=== PATIENT | female | born 1995 | race Caucasian/White ===

== ENCOUNTER 2017-03-06 16:47 | Emergency (ER) | payer MEDICAID ==
[~2017-03-06] VITALS: Ht 149.9 cm; Wt 65.0 kg
[~2017-03-06 16:47] MED LIST: ACET325T14 PO; ACYC-114 PO; IBUP-1222 PO; ONDA4TAB7 PO; OXYC-302 PO; PNV1TABL11 PO
[2017-03-06] MEDS ORDERED: SODIUM CHLORIDE 0.9% 1,000ML IVBOLUS ONE (17:30)
[2017-03-06] MEDS ORDERED: ONDANSETRON 2MG/ML, 2ML IVPush ONE (17:30)
[2017-03-06] MEDS ORDERED: SODIUM CHLORIDE FLUSH 10ML SYR IVF ONE (17:30)
[2017-03-06] MEDS ORDERED: ONDANSETRON 2MG/ML, 2ML ONE (17:39)
[2017-03-06 17:47] LABS: BLOOD UREA NITROGEN 14 mg/dL (7-18)
[2017-03-06 18:39] VITALS: BP 126/84
== END 2017-03-06 18:42 | disposition home or self-care (01) ==
LOC: ED 18:30
DX: O26.891 Other specified pregnancy related conditions, first trimester (principal); R11.2 Nausea with vomiting, unspecified; E86.0 Dehydration; R53.83 Other fatigue
CPT/HCPCS: 36415; 80048; 81001; 82040; 85025; 87086; 96374; 99284; J2405; J7030

== ENCOUNTER 2017-04-25 11:17 | Emergency (ER) | payer MEDICAID ==
[~2017-04-25] VITALS: Ht 149.9 cm; Wt 70.0 kg
[2017-04-25 11:50] LABS: WHITE BLOOD COUNT 11.6 x10^3/uL (3.4-10)
[2017-04-25] MEDS ORDERED: SODIUM CHLORIDE 0.9% 1,000ML IVBOLUS ONE (12:00)
[2017-04-25] MEDS ORDERED: ONDANSETRON 2MG/ML, 2ML IVPush ONE (12:00)
[2017-04-25 12:04] LABS: BLOOD UREA NITROGEN 9 mg/dL (7-18)
[2017-04-25] MEDS ORDERED: ONDANSETRON 2MG/ML, 2ML ONE (12:05)
[2017-04-25 12:08] LABS: ASPARTATE AMINO TRANSFERASE 7 U/L (15-37)
[2017-04-25 16:18] VITALS: BP 104/55
== END 2017-04-25 16:42 | disposition home or self-care (01) ==
LOC: ED 12:41
DX: O26.892 Other specified pregnancy related conditions, second trimester (principal); Z3A.17 17 weeks gestation of pregnancy; R10.31 Right lower quadrant pain
CPT/HCPCS: 36415; 74181; 76805; 80053; 81001; 85025; 87086; 87147; 99285

== ENCOUNTER 2017-05-26 12:50 | Outpatient (CLI) | payer MEDICAID ==
[~2017-05-26] VITALS: Ht 149.9 cm; Wt 70.9 kg
[2017-05-26 13:27] VITALS: BP 110/60
[2017-05-26 14:45] LABS: DAU SCREEN DISCLAIMER
[2017-05-26 15:08] LABS: HEMOGLOBIN 12.7 g/dL (11.7-16.4); WHITE BLOOD COUNT 12.1 x10^3/uL (3.4-10)
[2017-05-26 15:17] LABS: ASPARTATE AMINO TRANSFERASE 7 U/L (15-37); BLOOD UREA NITROGEN 5 mg/dL (7-18)
== END 2017-05-26 16:44 | disposition home or self-care (01) ==
LOC: LDOP 12:50
PROVIDERS: ATTEND Obstetrics & Gynecology
DX: O26.892 Other specified pregnancy related conditions, second trimester (principal); R10.9 Unspecified abdominal pain; Z3A.21 21 weeks gestation of pregnancy
CPT/HCPCS: 36415; 59025; 80053; 80307; 81003; 85025; 87086; 99211; G0463; G0479

== ENCOUNTER 2017-09-26 10:03 | Inpatient (IN) | payer MEDICAID ==
[~2017-09-26] VITALS: Ht 149.9 cm; Wt 84.5 kg
[2017-09-26] MEDS ORDERED: LACTATED RINGERS 1,000 ML IVBOLUS ONE (10:30)
[2017-09-26] MEDS ORDERED: SODIUM CITRATE/CITRIC ACID 30 ML UDC PO ONE (10:30)
[2017-09-26] MEDS ORDERED: METOCLOPRAMIDE 5 MG/ML, 2ML IV ONE (10:30)
[2017-09-26 10:35] VITALS: BP 120/83
[2017-09-26] MEDS ORDERED: NEWBORN KIT ONE (10:45)
[2017-09-26] MEDS ORDERED: OXYTOCIN 30U/ 0.9% NaCL 500ML 500 ML ONE (10:45)
[2017-09-26] MEDS ORDERED: METOCLOPRAMIDE 5 MG/ML, 2ML ONE (10:45)
[2017-09-26] MEDS ORDERED: SODIUM CITRATE/CITRIC ACID 30 ML UDC ONE (10:45)
[2017-09-26] MEDS ORDERED: PLEASE ENTER HEIGHT AND WEIGHT MC SCH (11:00)
[2017-09-26 11:05] LABS: BASOPHILS # (AUTO) 0.04 x10^3/uL (0-0.1); BASOPHILS % (AUTO) 0 % (0-1); EOSINOPHILS # (AUTO) 0.01 x10^3/uL (0-0.4); EOSINOPHILS % (AUTO) 0 % (1-7); LYMPHOCYTES # (AUTO) 1.79 x10^3/uL (1-3.4); LYMPHOCYTES % (AUTO) 16 % (22-44); MD NO; MEAN CORPUSCULAR HEMOGLOBIN 28.4 pg (27.0-34.8); MEAN CORPUSCULAR HGB CONC 33.2 g/dL (32.4-35.8); MEAN CORPUSCULAR VOLUME 85.6 fL (80-100); MEAN PLATELET VOLUME 9.6 fL (7.4-10.4); MONOCYTES # (AUTO) 0.59 x10^3/uL (0.2-0.8); MONOCYTES % (AUTO) 5 % (2-9); NEUTROPHILS # (AUTO) 9.06 x10^3/uL (1.8-6.8); NEUTROPHILS % (AUTO) 79 % (42-75); PLATELET COUNT 260 x10^3/uL (130-400); RED BLOOD COUNT 4.18 x10^6/uL (3.82-5.3); RED CELL DISTRIBUTION WIDTH 16.2 % (9.6-15.2)
[2017-09-26] MEDS: LACTATED RINGERS 1,000 ML IV SCH ×8 (11:08→23:29)
[2017-09-26] MEDS ORDERED: DEXAMETHASONE 4 MG/ML, 1ML ONE (11:22)
[2017-09-26] MEDS ORDERED: ONDANSETRON 2MG/ML, 2ML ONE (11:22)
[2017-09-26] MEDS ORDERED: FENTANYL PF 100 MCG/2ML ONE (11:22)
[2017-09-26] MEDS ORDERED: CEFAZOLIN 1,000 MG ONE (11:22)
[2017-09-26] MEDS ORDERED: OXYTOCIN 10 UNITS/ML, 1ML ONE (11:22)
[2017-09-26] MEDS ORDERED: PHENYLEPHRINE 10 MG/ML ONE (11:22)
[2017-09-26] MEDS ORDERED: KETOROLAC 30 MG/1 ML ONE (11:22)
[2017-09-26] MEDS ORDERED: EPHEDRINE 50 MG/ML, 1ML ONE (11:22)
[2017-09-26] MEDS ORDERED: ONDANSETRON 2MG/ML, 2ML IVPush PRN (11:30)
[2017-09-26] MEDS ORDERED: EPHEDRINE 50 MG/ML, 1ML IVPush PRN (11:30)
[2017-09-26] MEDS ORDERED: hydrALAzine 20 MG/ML, 1ML IV PRN (11:30)
[2017-09-26] MEDS ORDERED: PROMETHAZINE 25 MG/ML, 1ML IV PRN (11:30)
[2017-09-26] MEDS ORDERED: LABETALOL 5MG/ML, 20ML IV PRN (11:30)
[2017-09-26] MEDS ORDERED: HYDROcodone/APAP 7.5-325MG/15ML UDC PO PRN (11:30)
[2017-09-26] MEDS ORDERED: MEPERIDINE/PF 25MG/0.5ML IVPush PRN (11:30)
[2017-09-26] MEDS ORDERED: HYDROmorphone 1 MG/ML, 1ML IV PRN (11:30)
[2017-09-26] MEDS ORDERED: OXYcodone 5 MG/5 ML ORAL.SOL UDC PO PRN (11:30)
[2017-09-26] MEDS ORDERED: MIDAZOLAM 1 MG/ML, 2ML IV PRN (11:30)
[2017-09-26] MEDS ORDERED: FENTANYL PF 100 MCG/2ML IV PRN (11:30)
[2017-09-26 11:40] LABS: AMPHETAMINE SCREEN, URINE Negative (Negative); BARBITURATE SCREEN, URINE Negative (Negative); BENZODIAZEPINE SCREEN, URINE Negative (Negative); CANNABINOID SCREEN, URINE Negative (Negative); COCAINE SCREEN, URINE Negative (Negative); METHADONE SCREEN, URINE Negative (Negative); OPIATE SCREEN, URINE Negative (Negative)
[2017-09-26] MEDS: OXYTOCIN 30U/ 0.9% NaCL 500ML 500 ML IV SCH ×4 (13:29→23:29)
[2017-09-26] MEDS ORDERED: ONDANSETRON 2MG/ML, 2ML IV PRN (13:30)
[2017-09-26] MEDS ORDERED: morphine SULFATE 10 MG/ML, 1ML IVPush PRN ×2 (13:30)
[2017-09-26] MEDS ORDERED: METHYLERGONOVINE 0.2 MG/ML IM PRN (13:30)
[2017-09-26] MEDS ORDERED: MISOPROSTOL 200 MCG TABLET PR PRN (13:30)
[2017-09-26] MEDS ORDERED: SIMETHICONE 80 MG CHEW TAB PO PRN (13:30)
[2017-09-26] MEDS ORDERED: CALCIUM CARBONATE 500 MG TAB.CHEW PO PRN (13:30)
[2017-09-26] MEDS ORDERED: BISACODYL 10 MG SUPP PR PRN (13:30)
[2017-09-26] MEDS ORDERED: OXYcodone 5 MG/5 ML ORAL.SOL UDC ONE (14:26)
[2017-09-26 15:25] VITALS: BP 111/72
[2017-09-26] MEDS ORDERED: HYDROmorphone 1 MG/ML, 1ML ONE (15:30)
[2017-09-26] MEDS: ACETAMINOPHEN 325 MG TABLET PO SCH ×2 (15:36→19:35)
[2017-09-26] MEDS: OXYcodone IR 5MG TABLET PO PRN ×2 (18:22→22:31)
[2017-09-26] MEDS: KETOROLAC 30 MG/1 ML IV SCH (19:35)
[2017-09-26 19:45] VITALS: BP 113/71
[2017-09-26 21:05] LABS: BASOPHILS # (AUTO) 0.02 x10^3/uL (0-0.1); BASOPHILS % (AUTO) 0 % (0-1); EOSINOPHILS % (AUTO) 0 % (1-7); LYMPHOCYTES # (AUTO) 0.88 x10^3/uL (1-3.4); LYMPHOCYTES % (AUTO) 6 % (22-44); MD NO; MEAN CORPUSCULAR HEMOGLOBIN 28.5 pg (27.0-34.8); MEAN CORPUSCULAR HGB CONC 33.1 g/dL (32.4-35.8); MEAN CORPUSCULAR VOLUME 86.1 fL (80-100); MEAN PLATELET VOLUME 8.8 fL (7.4-10.4); MONOCYTES # (AUTO) 0.58 x10^3/uL (0.2-0.8); MONOCYTES % (AUTO) 4 % (2-9); NEUTROPHILS # (AUTO) 13.92 x10^3/uL (1.8-6.8); NEUTROPHILS % (AUTO) 90 % (42-75); PLATELET COUNT 265 x10^3/uL (130-400)
[2017-09-27 01:40] VITALS: BP 117/75
[2017-09-27] MEDS: KETOROLAC 30 MG/1 ML IV SCH ×3 (01:49→13:54)
[2017-09-27] MEDS: ACETAMINOPHEN 325 MG TABLET PO SCH ×4 (01:50→19:29)
[2017-09-27] MEDS: LACTATED RINGERS 1,000 ML IV SCH ×6 (02:14→10:30)
[2017-09-27] MEDS: OXYcodone IR 5MG TABLET PO PRN ×6 (03:30→20:58)
[2017-09-27 04:40] VITALS: BP 112/73
[2017-09-27] MEDS: OXYTOCIN 30U/ 0.9% NaCL 500ML 500 ML IV SCH ×2 (06:14→09:29)
[2017-09-27] MEDS ORDERED: PRENATAL VIT/IRON/FA 1 EACH TABLET ONE (07:57)
[2017-09-27] MEDS: DOCUSATE 100 MG CAPSULE PO PRN ×2 (08:01→20:58)
[2017-09-27] MEDS: PRENATAL VIT/IRON/FA 1 EACH TABLET PO SCH (08:01)
[2017-09-27 08:30] VITALS: BP 113/72
[2017-09-27] MEDS: IBUPROFEN 600 MG TABLET PO SCH ×2 (13:30→19:28)
[2017-09-27] MEDS ORDERED: KETOROLAC 30 MG/1 ML ONE (13:46)
[2017-09-27] MEDS ORDERED: MEASLES,MUMPS&RUBELLA VACC/PF 0.5 ML SQ-VACC ONE ×2 (13:47→14:00)
[2017-09-27 16:30] VITALS: BP 115/79
[2017-09-27 19:52] VITALS: BP 122/83
[2017-09-27] MEDS: ACYCLOVIR 400 MG TABLET PO SCH (20:58)
[2017-09-28] MEDS: ACETAMINOPHEN 325 MG TABLET PO SCH ×2 (01:29→08:08)
[2017-09-28] MEDS: IBUPROFEN 600 MG TABLET PO SCH ×2 (01:29→08:08)
[2017-09-28] MEDS: OXYcodone IR 5MG TABLET PO PRN ×3 (01:29→10:16)
[2017-09-28 07:50] VITALS: BP 121/83
[2017-09-28] MEDS: DOCUSATE 100 MG CAPSULE PO PRN (08:07)
[2017-09-28] MEDS: PRENATAL VIT/IRON/FA 1 EACH TABLET PO SCH (08:07)
[2017-09-28] MEDS: ACYCLOVIR 400 MG TABLET PO SCH (10:11)
[2017-09-28] MEDS ORDERED: DOCU-131 PO (11:42)
[2017-09-28] MEDS ORDERED: IBUP-1222 PO (11:43)
[2017-09-28] MEDS ORDERED: OXYC-302 PO (11:44)
== END 2017-09-28 13:35 | disposition home or self-care (01) | DRG 766 ==
LOC: LDIP 10:03 → 2NW 15:17
PROVIDERS: ADMIT Obstetrics & Gynecology; ATTEND Obstetrics & Gynecology
PROC: 10D00Z1 Extraction of Products of Conception, Low, Open Approach (ICD-10-PCS; principal; 2017-09-26)
DX: O34.211 Maternal care for low transverse scar from previous cesarean delivery (principal); Z37.0 Single live birth; Z3A.39 39 weeks gestation of pregnancy
CPT/HCPCS: 36415; 80307; 85025; 86850; 86900; J0690; J1100; J1170; J1885; J2405; J3010; J2370; J2590; J2765; J7120

== ENCOUNTER 2020-03-27 12:37 | Day surgery (SDC) | payer OTHER ==
[2020-03-24 08:42] LABS: BASOPHILS # (AUTO) 0.06 x10^3/uL (0-0.1); BASOPHILS % (AUTO) 1 % (0-1); EOSINOPHILS # (AUTO) 0.05 x10^3/uL (0-0.4); EOSINOPHILS % (AUTO) 1 % (1-7); LYMPHOCYTES % (AUTO) 21 % (22-44); MD NO; MEAN CORPUSCULAR HGB CONC 32.4 g/dL (32.4-35.8); MEAN CORPUSCULAR VOLUME 89.4 fL (80-100); MEAN PLATELET VOLUME 9.4 fL (7.4-10.4); MONOCYTES # (AUTO) 0.44 x10^3/uL (0.2-0.8); MONOCYTES % (AUTO) 5 % (2-9); NEUTROPHILS # (AUTO) 6.77 x10^3/uL (1.8-6.8); NEUTROPHILS % (AUTO) 73 % (42-75); PLATELET COUNT 267 x10^3/uL (130-400); RED BLOOD COUNT 4.96 x10^6/uL (3.82-5.3); RED CELL DISTRIBUTION WIDTH 14.9 % (9.6-15.2)
[2020-03-24 08:51] LABS: ALANINE AMINOTRANSFERASE 25 U/L (12-78); ANION GAP 7 mmol/L (5-15); CHLORIDE 108 mmol/L (98-107); CREATININE 0.96 mg/dL (0.55-1.02)
[2020-03-24 08:53] LABS: MICROSCOPIC AUTO
[2020-03-24 08:55] LABS: ALKALINE PHOSPHATASE 115 U/L (45-117); BILIRUBIN,TOTAL 0.6 mg/dL (0.2-1.0); TOTAL PROTEIN 7.8 g/dL (6.4-8.2)
[~2020-03-27] VITALS: Ht 149.9 cm; Wt 81.3 kg
[~2020-03-27 12:37] MED LIST changes: +DOCU-131 PO
[2020-03-27] MEDS ORDERED: LACTATED RINGERS 1,000 ML IV SCH (13:18)
[2020-03-27 13:20] VITALS: BP 144/105
[2020-03-27] MEDS ORDERED: CHLORHEXIDINE 15 ML UDC MM ONE (13:30)
[2020-03-27] MEDS ORDERED: CHLORHEXIDINE 15 ML UDC ONE (13:32)
[2020-03-27 13:36] LABS: HCG UR SG 1.021 (1.003-1.030)
[2020-03-27 13:56] LABS: MICROSCOPIC INDICATED
[2020-03-27] MEDS ORDERED: FAMOTIDINE 20 MG TABLET PO STA (15:16)
[2020-03-27] MEDS ORDERED: ACETAMINOPHEN 500 MG TABLET PO STA (15:16)
[2020-03-27] MEDS ORDERED: SCOPOLAMINE 1MG PATCH TD STA (15:16)
[2020-03-27] MEDS ORDERED: FAMOTIDINE 20 MG TABLET ONE (15:20)
[2020-03-27] MEDS ORDERED: SCOPOLAMINE 1MG PATCH TD ONE ×2 (15:20→17:00)
[2020-03-27] MEDS ORDERED: ACETAMINOPHEN 500 MG TABLET ONE (15:21)
[2020-03-27] MEDS ORDERED: ONDANSETRON ODT 8 MG ONE (15:21)
[2020-03-27] MEDS ORDERED: ONDANSETRON ODT 8 MG PO ONE (15:30)
[2020-03-27] MEDS ORDERED: SILVER NITRATE STICK TP ONE (16:06)
[2020-03-27] MEDS ORDERED: BUPIVACAINE/PF-EPI 0.25% 1:200K ONE (16:06)
[2020-03-27] MEDS ORDERED: FAMOTIDINE 20 MG TABLET PO ONE (17:00)
[2020-03-27] MEDS ORDERED: ACETAMINOPHEN 500 MG TABLET PO ONE (17:00)
[2020-03-27] MEDS ORDERED: MIDAZOLAM 1 MG/ML, 2ML ONE (17:01)
[2020-03-27] MEDS ORDERED: FENTANYL PF 250 MCG/5ML ONE (17:01)
[2020-03-27] MEDS ORDERED: HYDROmorphone 1 MG/ML, 1ML INJ IVPush PRN (17:30)
[2020-03-27] MEDS ORDERED: hydrALAzine 20 MG/ML, 1ML IV PRN (17:30)
[2020-03-27] MEDS ORDERED: ACETAMINOPHEN 325 MG TABLET PO PRN (17:30)
[2020-03-27] MEDS ORDERED: PROMETHAZINE 25 MG/ML, 1ML IVPush PRN (17:30)
[2020-03-27] MEDS ORDERED: LABETALOL 5MG/ML, 20ML IV PRN (17:30)
[2020-03-27] MEDS ORDERED: ONDANSETRON 2MG/ML, 2ML IVPush PRN (17:30)
[2020-03-27] MEDS ORDERED: MEPERIDINE/PF 25MG/0.5ML IVPush PRN (17:30)
[2020-03-27] MEDS ORDERED: EPHEDRINE 50 MG/ML, 1ML IVPush PRN (17:30)
[2020-03-27] MEDS ORDERED: OXYcodone 5 MG/5 ML ORAL.SOL UDC PO PRN (17:30)
[2020-03-27] MEDS ORDERED: LIDOCAINE PF 2%, 5ML ONE (17:38)
[2020-03-27] MEDS ORDERED: EPHEDRINE 50 MG/ML, 1ML ONE (17:38)
[2020-03-27] MEDS ORDERED: KETOROLAC 30 MG/1 ML ONE (17:38)
[2020-03-27] MEDS ORDERED: SUCCINYLCHOLINE 20 MG/ML, 10ML ONE (17:57)
[2020-03-27] MEDS ORDERED: SUGAMMADEX 200 MG/2 ML IVPush ONE ×2 (17:57→17:58)
[2020-03-27] MEDS ORDERED: ONDANSETRON 2MG/ML, 2ML ONE (17:57)
[2020-03-27] MEDS ORDERED: PROPOFOL 10 MG/ML, 20ML ONE (17:57)
[2020-03-27] MEDS ORDERED: ROCURONIUM 10MG/ML,5ML ONE (17:57)
[2020-03-27] MEDS ORDERED: DEXAMETHASONE 4 MG/ML, 1ML ONE (17:57)
[2020-03-27] MEDS ORDERED: FENTANYL PF 100 MCG/2ML ONE ×2 (18:40→19:41)
[2020-03-27] MEDS: FENTANYL PF 100 MCG/2ML IV PRN ×2 (19:40→19:55)
[2020-03-27] MEDS ORDERED: OXYC-302 PO (20:52)
[2020-03-27] MEDS ORDERED: ONDA4TAB7 PO (20:53)
[2020-03-27] MEDS ORDERED: IBUP-1222 PO (20:54)
== END 2020-03-27 21:50 | disposition home or self-care (01) ==
LOC: OUT 12:37 → 4NE 20:18 → OUT 21:50
PROVIDERS: ATTEND Obstetrics & Gynecology
DX: Z30.2 Encounter for sterilization (principal); Z11.59 Encounter for screening for other viral diseases; D06.0 Carcinoma in situ of endocervix; N92.5 Other specified irregular menstruation; Z79.899 Other long term (current) drug therapy
CPT/HCPCS: 36415; 57460; 58670; 80053; 81001; 81025; 84702; 85025; 86850; 86900; 87086; 87635; 88305; 88307; J0330; J1100; J1885; J2250; J2405; J2704; J3010; J7120; Q0162; G0378

== ENCOUNTER 2020-04-06 06:36 | Emergency (ER) | payer OTHER ==
[~2020-04-06] VITALS: Ht 149.9 cm; Wt 80.2 kg
--- NOTE | 2020-04-06 07:25 | NUR ---
"I HAD A TUBAL AND LEAP LAST WEEK AND TODAY AND WOKE UP TO LARGE POOL OF BLOOD" PT REPORTS CLOTS SIZE OF BASEBALLS, PT BLEEDING THROUGH PAD EVERY 20MINS. DENIES PAIN ASIDE FROM CRAMPING THAT HAS BEEN PRESENT SINCE PROCEEDURE. PT IN BED IN GOWN WITH CONT CARDIAC MONITOE, SPO2, BP Q 30 MIN, SIDE RAILS UP X2, CALL LIGHT IN REACH. WENT OVER POC FROM ORDER LIST AGREES TO PLAN. 20 G IV IN LEFT AC WITH NS PER ORDER. LABS DRAWN AND SENT. WARM BLANKETS GIVEN AND SOCKS. PT TO US AT THIS TIME.
[2020-04-06 07:29] LABS: MEAN CORPUSCULAR HEMOGLOBIN 28.7 pg (27.0-34.8); MEAN CORPUSCULAR HGB CONC 32.4 g/dL (32.4-35.8); MEAN CORPUSCULAR VOLUME 88.6 fL (80-100); MEAN PLATELET VOLUME 8.9 fL (7.4-10.4); PLATELET COUNT 364 x10^3/uL (130-400); RED BLOOD COUNT 4.86 x10^6/uL (3.82-5.3); RED CELL DISTRIBUTION WIDTH 14.9 % (9.6-15.2)
[2020-04-06] MEDS ORDERED: SODIUM CHLORIDE 0.9% 1,000ML IVBOLUS ONE ×2 (07:30→08:30)
[2020-04-06 07:38] LABS: ANION GAP 12 mmol/L (5-15); CALCIUM 9.2 mg/dL (8.5-10.1); CHLORIDE 111 mmol/L (98-107); CREATININE 0.86 mg/dL (0.55-1.02)
[2020-04-06 07:55] LABS: BASOPHILS # (AUTO) 0.01 x10^3/uL (0-0.1); BASOPHILS % (AUTO) 0 % (0-1); EOSINOPHILS # (AUTO) 0.01 x10^3/uL (0-0.4); EOSINOPHILS % (AUTO) 0 % (1-7); LYMPHOCYTES # (AUTO) 1.21 x10^3/uL (1-3.4); LYMPHOCYTES % (AUTO) 9 % (22-44); MD SCAN; MONOCYTES # (AUTO) 0.24 x10^3/uL (0.2-0.8); MONOCYTES % (AUTO) 2 % (2-9); NEUTROPHILS # (AUTO) 12.16 x10^3/uL (1.8-6.8); NEUTROPHILS % (AUTO) 89 % (42-75)
--- NOTE | 2020-04-06 07:58 | NUR ---
Jose Enrique Avila at bedside for pelvic exam.
[2020-04-06] MEDS ORDERED: SODIUM CHLORIDE FLUSH 10ML SYR IVF ONE ×2 (08:00→08:30)
[2020-04-06] MEDS ORDERED: ONDANSETRON 2MG/ML, 2ML ONE (08:20)
[2020-04-06] MEDS ORDERED: MORPHINE SULFATE 4 MG/ML, 1ML ONE (08:20)
[2020-04-06] MEDS ORDERED: ONDANSETRON 2MG/ML, 2ML IVPush ONE (08:30)
[2020-04-06] MEDS ORDERED: MORPHINE SULFATE 4 MG/ML, 1ML IVPush PRN (08:30)
[2020-04-06 10:25] VITALS: BP 132/74
== END 2020-04-06 10:27 | disposition home or self-care (01) ==
LOC: ED 06:59
DX: N92.0 Excessive and frequent menstruation with regular cycle (principal); R10.2 Pelvic and perineal pain; Z98.51 Tubal ligation status
CPT/HCPCS: 36415; 76856; 80048; 82040; 84703; 85025; 86850; 86900; 96374; 96375; 99284; J2270; J2405; J7030